=== PATIENT | female | born 1950 | race Caucasian/White ===

== ENCOUNTER → 2016-09-02 | Outpatient (CLI) | payer BC ==
[~2016-09-02] MED LIST: APIX1TAB3 PO; ATV/1 PO; CLX20; FLUO40CA8 PO; GDN40; LORA-741 PO; NITR-5 PO; PXL20; [UNRECOGNIZED DRUG - OTHER]
[2016-09-02 15:39] LABS: BASO % 0.2 %; BASO ABS # 0.02 K/uL (0-0.2); COMPLETE YES; EOS % 2.7 %; HEMATOCRIT 38.9 % (37-47); IG% 0.3 %; LYMPH % 19.9 %; LYMPH ABS # 2.36 K/uL (1.2-3.4); MEAN CELL VOLUME 89.8 fL (80-100); MEAN CORPUSCULAR HGB CONC 33.4 g/dl (32-36); MEAN PLATELET VOLUME 10.2 fL (7.4-10.4); MONO % 6.8 %; NEUT % 70.1 %; PLATELET COUNT 292 K/uL (130-400); RED BLOOD COUNT 4.33 M/uL (4.2-5.4); WHITE BLOOD COUNT 11.86 K/uL (4.8-10.8)
[2016-09-02 16:02] LABS: ALT/SGPT 26 U/L (12-78); BLOOD UREA NITROGEN 17 mg/dl (7-18); BUN/CREATININE RATIO 18.5 (10-20); CALCIUM 9.4 mg/dl (8.5-10.1); CARBON DIOXIDE 29 mmol/L (21-32); CHLORIDE 101 mmol/L (98-107); CHOLESTEROL 186 mg/dl (0-200); CREATININE 0.92 mg/dl (0.60-1.20); GLUCOSE 90 mg/dl (70-99); MAGNESIUM 2.1 mg/dl (1.8-2.4); SODIUM 137 mmol/L (136-145); TRIGLYCERIDES 264 mg/dl (0-150); VERY LOW DENSITY LIPOPROT CALC 53 mg/dl
[2016-09-02 16:11] LABS: ALKALINE PHOSPHATASE 70 U/L (45-117); AST/SGOT 13 U/L (15-37); CHOLESTEROL/HDL RATIO 3.8; HDL CHOLESTEROL 49 mg/dl; LDL CHOLESTEROL CALCULATED 84 mg/dl
== END | disposition home or self-care (01) ==
LOC: C.LAB1850 14:06
PROVIDERS: ATTEND Internal Medicine
DX: I48.91 Unspecified atrial fibrillation (principal); E55.9 Vitamin D deficiency, unspecified

== ENCOUNTER → 2016-09-10 | Outpatient (CLI) | payer BC ==
--- NOTE | 2016-09-11 06:14 | PAP/PSG TECHNICIAN REPORT ---
[facility] Poultry Cutter Polysomnogram Report Study name: None Report date: 09/11/2016 Study date: 09/10/2016 Referring Physician: RV. GONSALVES MD Name: JAIME GAXIOLA Interpreting Physician: Preston Aguilar M.D. Date of : 1950 Poultry Cutter: CHARIS Cisneros. Sex: Female Age: 66 StudyType: PSG PAP Weight: 193 lbs Height: 66 years, Height 5' 3" Neck Circum:15inches BMI: 34.18 Medications: Eliquis 5mg, Fluoxetine 40mg, Lorazepam 0.5mg, Patient History Study started on room air with 4cwp in room #8. 66 yr old female here tonight for a new titration study. She had a diagnostic study done in [place] that had an AHI of 16.7. Her ESS=6/24. Neck circ=15inches. Parameters Monitored NPSG: E1-M2, E2-M1, Fp1-M2, Fp2-M1, F3-M2, F4-M2, F4-M1, C3-M2, C4-M2, C4-M1, O1-M2, O2-M2, O2-M1, T3-M2, T4-M1, P3-M2, P4-M1, CHIN1, CHIN2, HR, EKG, Legs, PFLOW, SNOR, FLOW, CFLOW, Tidal Volume, THOR, ABDO, SpO2, PLTH, CPRESS, ETCO2 Wave, ETCO2, pH Sleep Architecture Sleep Stages Time at Lights Off 9:23:43 PM STAGES Time (min.) TST (%) Time at Lights On 5:30:13 AM Wake 202.5 -- Total Recording Time (TRT) 486.50 min. N1 23.5 8 Total Sleep Period (TSP) 375.0 min. N2 183.0 64 Total Sleep Time (TST) 284.0min. N3 34.5 12 Awake Time 202.5 min. REM 43.0 15 Wake after Sleep Onset 102.5 min. Sleep Efficiency (SE) 58 % Sleep Onset Latency (MARC) 100.0 min. Number of Stage 1 Shifts None Awakenings 14 Stage Changes 85 Number of REM periods 8 REM 43.0 15 REM Latency 157.5 min. NREM 241.0 85 Body Position Analysis Supine Right Left Side Prone Vertical Total Sleep Time (min.) 217.7 82.5 85.5 168.05 0.0 0.0 Total Sleep Time (%) 41% 29% 30% 59 0% N/A% Total Sleep Time REM (min.) 28.5 14.5 0.0 None 0.0 0.0 Total Sleep Time NREM (min.) 87.5 68.0 85.5 None 0.0 0.0 Intermittent Wake (min.) 101.7 30.2 70.5 None 0.0 0.0 Total Sleep Period (%) 43% None None None None None Arousals Myoclonus (PLM) * Events Count Index Events Count Index Spontaneous 15 3 Events Awake (PLMW) 338 100.1 Respiratory 8 1.9 Events Asleep w/ Arousal (PLMA) 23 4.9 PLM 23 5 Events Asleep w/o Arousal (PLMS) 229 48.4 Snoring 2 0 Total Asleep 252 53.2 Total 48 10 Total 590 73 Respiratory Analysis * CA OA MA CH H RERA Total Count 0 1 0 0 24 0 25 Index 0.0 0.2 0.0 0 5.1 0 5.3 Mean Duration 0.0 37.5 0.0 0.00 28.4 0.0 28.8 Longest Duration 0.0 37.5 0.0 0.00 0.0 0.0 49.4 Respiratory Event Summary Total Supine ~Supine Right Left Prone REM NREM Apneas Count 1 1 0 0 0 N/A 1 0 Index 0.2 1 0 0.0 0.0 N/A 1 0 Hypopneas (4% Desat) Count 24 24 0 0 0 N/A 22 2 Index 5.1 12.4 0 0.0 0.0 N/A 30.7 0.5 Apneas & All Hypopneas Count 25 25 0 0 0 N/A 23 2 Index 5.3 13 0 0 0 N/A 32.1 0.5 Respiratory Events (Manager Division+All Hyp+RERA) Count 25 25 0 0 0 N/A 23 2 Index 5.3 13 0 0.0 0.0 N/A 32.1 0.5 Respiratory Related Arousal Count 8 25 0 0 0 N/A 8 1 Index 1.9 5 0 0 0 N/A 11 0 Snoring Analysis Supine Right Left Prone REM NREM Total Snore duration 1.8 min Snores count 59 2 3 N/A 44 20 64 Snore mean duration 1.7 Sec Snores index 31 1 2 N/A 61.4 5.0 13.5 TST with snoring (%) 0.6% Desaturation Event Summary: Minimum %SpO2 Event Count Mean/Min/Max Duration(sec.) Desaturation Index % Time In Bed > 90 64 30.0 / 7.8 / 59.3 11.0 74.6 86 - 90 12 24.8 / 7.5 / 54.5 6.2 24.8 81 - 85 0 N/A 0.0 0.6 76 - 80 0 N/A 0.0 0.0 71 - 75 0 N/A 0.0 0.0 66 - 70 0 N/A 0.0 0.0 61 - 65 0 N/A 0.0 0.0 56 - 60 0 N/A 0.0 0.0 51 - 55 0 N/A 0.0 0.0 < 50 0 N/A 0.0 0.0 Total REM NREM Awake <50% 0.0 min. 0.0 min. 0.0 min. 0.0 min. 51 - 60% 0.0 min. 0.0 min. 0.0 min. 0.0 min. 61 - 70% 0.0 min. 0.0 min. 0.0 min. 0.0 min. 71 - 80% 0.0 min. 0.0 min. 0.0 min. 0.0 min. 81 - 90% 118.6 min. 21.1 min. 71.8 min. 25.7 min. 91 - 100% 349.0 min. 21.9 min. 169.2 min. 157.9 min. Average 92 90 91 93 Minimum SpO2 81 83 81 82 Desaturation Event Index 8.3 37.7 1.5 10.7 # Desat. Events below 89% 36 24 3 9 Time(%) with Saturation below 89% 4.1 2.0 1.0 1.1 Time(min.) with Saturation below 89% 19.3 9.2 4.9 5.3 Time (mins) REM (mins) NREM (mins) % of TST SpO2 Below 90% 31 26 N5 11.8 SpO2 Below 88% 14 0 0 3 Heart Rate Analysis Min (bpm) Max (bpm) Average (bpm) Awake 58 132 74 NREM 58 89 72 REM 57 86 69 Overall 57 89 72 Supplemental O2 Values Minimum O2 level: None Value Start Time End Time Poultry Cutter Comments Mrs. Gaxiola slept in the right, left and supine positions. No cardiac arrhythmia noted. PLM's noted. No bruxism noted. CPAP was initiated at +4 CMH2O and up-titrated to an optimal level of +8 CMH2O, which nearly eliminated all respiratory events and snoring. A small Quattro Air full face mask by [employer] was used during titration She used the restroom two times during the night. She stated that she slept a little worse than usual. She did have a panic attack after her first REM period. The final report will be interpreted and signed by a sleep physician. The completed physician report will then be placed in the patient medical record. Therapy Event: Therapy (cm H20) 4 6 7 8 Total Time at Pressure (min.) 261.1 11.4 11.2 202.8 TST at Pressure (min.) 150.1 11.4 11.2 111.3 # Periods 1 1 1 1 Sleep Onset (min.) 100.0 0.0 0.0 0.0 REM Onset (min.) 257.5 0.0 0.0 0.0 Sleep Efficiency % 57 100 100 54 Wakefulness (%) 42.5 0.0 0.0 45.1 Wakefulness (min.) 111.0 0.0 0.0 91.5 NREM 1 (%) 5.7 13.1 13.4 2.7 NREM 1 (min.) 15.0 1.5 1.5 5.5 NREM 2 (%) 37.2 0.0 0.0 42.4 NREM 2 (min.) 97.0 0.0 0.0 86.0 NREM 3 (%) 13.2 0.0 0.0 0.0 NREM 3 (min.) 34.5 0.0 0.0 0.0 REM (%) 1.4 86.9 86.6 9.8 REM (min.) 3.6 9.9 9.7 19.8 # Arousals 27 4 6 11 Arousal Index 10.8 21.0 32.1 5.9 # Snore 14 15 20 15 Snore Index 5.6 78.9 106.8 8.1 AHI 1.6 47.3 42.7 2.2 AHI Supine 3.9 47.3 42.7 7.7 AHI Non-Supine 0.0 N/A N/A 0.0 NREM AHI 0.4 40.0 0.0 0.0 REM AHI 50.2 48.4 49.3 12.1 RDI 1.6 47.3 42.7 2.2 # Obstructive 0 1 0 0 # Central Ap 0 0 0 0 # Mixed 0 0 0 0 # Hypopneas 4 8 8 4 RERAS 0 0 0 0 Total Respiratory Events 4 9 8 4 Time Below SpO2 89.00% (min.) 3.2 4.5 3.3 3.0 Mean NREM SpO2 (%) 91 88 89 91 Mean REM SpO2 (%) 90 89 90 91 Mean Sleep SpO2 (%) 91 89 90 91 Min NREM SpO2 (%) 87 81 85 88 Min REM SpO2 (%) 84 84 83 84 Position Supine (min.) 62.2 11.4 11.2 31.1 Position Non-supine (min.) 87.9 0.0 0.0 80.1 LM Index Sleep 90.3 57.9 42.7 3.8 LM Index NREM 91.7 0.0 0.0 0.7 LM Index REM 33.5 66.6 49.3 18.2 Mean Heart Rate (bpm) 74 70 70 69 Min Heart Rate (bpm) 60 60 59 57
--- NOTE | 2016-09-15 17:02 | Sleep Study ---
Sleep Study Report Date of Service: September 10, 2016 Sleep Study Report Clinical data: The patient is a 66-year-old female with a BMI of 34.2 referred by her PCP for a CPAP titration study. She had a diagnostic PSG done in [place] which showed moderate sleep apnea with an AHI of 16.7. Her [place] sleepiness score is 6/24. Sleep architecture: Total sleep time was 284 minutes divided between 241 minutes of non-REM sleep and 43 minutes of REM sleep. Sleep onset latency was markedly delayed at 100 minutes. REM latency was 157.5 minutes. Sleep efficiency was reduced at 58 percent. Wake after sleep onset was elevated at 102.5 minutes. Sleep consisted of stage N1 8 percent, stage N2 64 percent, stage N3 12 percent, and REM 15 percent. Arousal data: 48 arousals were recorded for index of 10 per hour. PLM data: Significantly elevated limb movements during sleep were noted. There were 252 limb movements during sleep noted for an index of 53.2 per hour with an arousal index of 4.9 per hour. Respiratory data: The AHI was 5.3. There was 1 obstructive apneic episodes 37.5 seconds in duration. There were 24 hypopneic episodes. The mean duration of hypopnea was 28.4 seconds. Oximetry data: Nocturnal hypoxemia was seen. Oxygen nj was 81 percent during non-REM sleep. Mean saturation was 92 percent. Time below 88 percent was 14 minutes. EKG: Heart rates ranged from 57 to 89 beats per minute. No arrhythmias were noted. Treatment summary: The patient slept in the right, left, and supine positions. She used a small Quattro air fullface mask by [employer]. She was titrated up to her optimal pressure setting of 8 centimeters water pressure. At that final pressure setting, the patient slept for 111.3 minutes with an AHI of 2.2. She did have a panic attack after her 1st REM episode. Impression: Moderate sleep apnea corrected with CPAP 8 centimeters water pressure utilizing a small Quattro air fullface mask by [employer] Recommendations: Patient should be started on the above-noted treatment regimen and seen back in follow-up within 90 days to document efficacy and compliance. Copies To 1: RV. Laureano MD
== END | disposition home or self-care (01) ==
LOC: C.NEUR 20:00
PROVIDERS: ATTEND Internal Medicine
DX: G47.33 Obstructive sleep apnea (adult) (pediatric) (principal); I48.91 Unspecified atrial fibrillation; F32.9 Major depressive disorder, single episode, unspecified; E55.9 Vitamin D deficiency, unspecified

== ENCOUNTER → 2016-09-15 | Outpatient (CLI) | payer BC ==
[2016-09-15 12:22] LABS: BASO % 0.4 %; BASO ABS # 0.04 K/uL (0-0.2); COMPLETE YES; EOS % 2.9 %; HEMATOCRIT 38.1 % (37-47); IG% 0.2 %; LYMPH % 21.7 %; LYMPH ABS # 1.99 K/uL (1.2-3.4); MEAN CELL VOLUME 92.3 fL (80-100); MEAN CORPUSCULAR HEMOGLOBIN 31.2 pg (25-34); MEAN CORPUSCULAR HGB CONC 33.9 g/dl (32-36); MEAN PLATELET VOLUME 10.9 fL (7.4-10.4); MONO % 8.1 %; NEUT % 66.7 %; PLATELET COUNT 261 K/uL (130-400); RED BLOOD COUNT 4.13 M/uL (4.2-5.4); WHITE BLOOD COUNT 9.17 K/uL (4.8-10.8)
[2016-09-15 12:58] LABS: TOTAL IRON BINDING CAPACITY 304 mcg/dl (250-450)
[2016-09-15 14:33] LABS: LYME DISEASE AB IGG NEG (NEG)
[2016-09-15 14:36] LABS: LYME DISEASE AB IGM NEG (NEG)
[2016-09-17 16:51] LABS: EPSTEIN BARR VIR CAPSID IGG >750.00 U/ML
== END | disposition home or self-care (01) ==
LOC: C.LAB1850 10:21
PROVIDERS: ATTEND Internal Medicine
DX: Z11.59 Encounter for screening for other viral diseases (principal); R53.83 Other fatigue

== ENCOUNTER 2016-09-27 07:35 | Emergency (ER) | payer BC ==
[~2016-09-27] VITALS: Ht 162.6 cm; Wt 88.5 kg
[~2016-09-27 07:35] MED LIST changes: -APIX1TAB3 PO; -ATV/1 PO; -FLUO40CA8 PO; -LORA-741 PO; -NITR-5 PO
[2016-09-27 07:39] VITALS: TEMP 37.1; Ht 162.6 cm; Wt 88.5 kg
[2016-09-27 08:13] VITALS: O2SAT 96
--- NOTE | 2016-09-27 08:13 | EMERGENCY ROOM VISIT NOTE ---
History Report prepared by Petty: Kailey Alex Under the Supervision of: Dr. Gutierrez Woodard M.D. First contact with patient: 07:51 Chief Complaint: OTHER COMPLAINT Stated Complaint: PT THINKS SHE HAD A STROKE MONDAY 09/25 History of Present Illness The patient is a 66 year old female who presents to the Emergency Room for further evaluation of resolved stroke-like symptoms that occurred 2 days ago. The patient states that she was at the pharmacy picking up medications when she coughed and after opening her eyes the room looked like it was "filled with smoke." She has a history of TIAs and states that Dr. Burger - Internal Medicine told her that if she ever had visual changes to get evaluated because it could be a sign of a CVA. The patient states that she was also experiencing dizziness. She asked her to bring her into the ED or to the doctor, but she states that he refused to take her and told her to go home and lay down for a while. The patient states that she woke up the next morning and wanted to go into a walk-in clinic but her would not take her. She states that she woke up this morning and was going to drive herself into the ED but her said he would drive her. She is also experiencing generalized weakness, but denies fevers, chills, and abdominal pain. She states that she started Macrobid 3 days ago for a UTI with hematuria. She states that she is experiencing some left-sided flank pain which she thinks is associated with the UTI. The patient adds that she is concerned about developing chest pain so she would like to have nitroglycerin paste applied just in case she gets chest pain because she is not confident that her would help her if she got pain. The patient states that she has been compliant with her medications. The patient's adds that the patient started medication for hypertension somewhat recently and it causes her to get lightheaded with changes in position. Source of History: patient, spouse/significant other () Onset: 2 days ago Position: head Timing: resolved Modifying Factors (Worsening): other (stroke-like symptoms) Associated Symptoms: + weakness (generalized), No fevers, No chills, No abdominal pain Note: visual changes, dizziness, left flank pain Review of Systems All systems have been listed, reviewed, and are negative other than those previously mentioned. Please see Additional Medical History Sheet. Past Medical & Surgical Medical Problems: (1) Heart disease (2) Hypertension Family History Heart disease Lung disease Social History Smoking Status: Never Smoker Smokeless Tobacco Use: No Alcohol Use: none Drug Use: none Marital Status: single Housing Status: lives with significant other Occupation Status: unemployed Current/Historical Medications Scheduled Apixaban (Eliquis), 5 MG PO BID Fluoxetine Hcl (Prozac), 40 MG PO QAM Lorazepam (Ativan), 0.5 MG PO QAM Lorazepam (Ativan), 1 MG PO HS Nitrofurantoin Monohyd Macrocr (Macrobid), 100 MG PO BID Allergies Coded Allergies: Chlorpromazine (Verified Allergy, Mild, TACHYCARDIA, 09/27/16) Penicillins (Verified Allergy, Mild, 09/27/16) Omeprazole (Verified Adverse Reaction, Unknown, SEV. STOMACH PAIN, 09/27/16 ) Physical Exam Vital Signs Date Time Temp Pulse Resp B/P (MAP) Pulse Ox O2 Delivery O2 Flow Rate FiO2 09/27/16 10:15 76 18 134/87 95 Room Air 09/27/16 08:16 74 09/27/16 08:15 98 Room Air 09/27/16 08:13 96 Room Air 09/27/16 07:39 37.1 87 18 154/87 94 Room Air Physical Exam GENERAL: Patient awake, alert, oriented x 3. Patient follows commands. Patient does not appear toxic. Patient is adequately hydrated and well- nourished. SKIN: No erythema, pallor, cyanosis or rash HEENT: Normal head, pupils equal, reactive to light and accommodation. Ears normal. Oral cavity and posterior pharynx appear normal. Neck: Without adenopathy, no neck vein distention. LUNGS: Clear to auscultation. No wheezes, no rales, no rhonchi. HEART: No murmurs. No gallops. No rubs ABDOMEN: No masses, no rebound, no hepatomegaly or splenomegaly. EXTREMITIES: No signs of trauma. No pedal or pretibial edema. No calf or thigh tenderness. NEUROLOGIC: Cranial nerves II-XII within normal limits. No gross motor sensory function deficits. PSYCH: Awake, alert, oriented appropriately, does not appear to be hallucinating , does not appear to be suicidal. Medical Decision & Procedures ER Provider Diagnostic Interpretation: Radiology results as stated below per my review and radiologist interpretation: CHEST 2 VIEWS ROUTINE FINDINGS: The cardiac and mediastinal contours are normal. There is no evidence of focal pulmonary consolidation. There is no evidence of failure. No pleural effusions are visualized.[ There is minimal left basilar atelectasis/scarring. IMPRESSION: No active disease in the chest. Electronically signed by: Antoine Leon M.D. 09/27/2016 8:55 AM Dictated Date/Time: 09/27/2016 8:54 AM Laboratory Results 09/27/16 08:20 Red Blood Count 4.01, Mean Corpuscular Volume 91.5, Mean Corpuscular Hemoglobin 31.7, Mean Corpuscular Hemoglobin Concent 34.6, Mean Platelet Volume 10.3, Neutrophils (%) (Auto) 70.4, Lymphocytes (%) (Auto) 17.9, Monocytes (%) (Auto) 7.0, Eosinophils (%) (Auto) 4.1, Basophils (%) (Auto) 0.4, Neutrophils # (Auto) 5.69, Lymphocytes # (Auto) 1.45, Monocytes # (Auto) 0.57, Eosinophils # (Auto) 0.33, Basophils # (Auto) 0.03 09/27/16 08:20 Test 09/27/16 08:20 09/27/16 08:25 White Blood Count 8.09 K/uL (4.8-10.8) Red Blood Count 4.01 M/uL (4.2-5.4) Hemoglobin 12.7 g/dL (12.0-16.0) Hematocrit 36.7 % (37-47) Mean Corpuscular Volume 91.5 fL (80-100) Mean Corpuscular Hemoglobin 31.7 pg (25-34) Mean Corpuscular Hemoglobin Concent 34.6 g/dl (32-36) Platelet Count 215 K/uL (130-400) Mean Platelet Volume 10.3 fL (7.4-10.4) Neutrophils (%) (Auto) 70.4 % Lymphocytes (%) (Auto) 17.9 % Monocytes (%) (Auto) 7.0 % Eosinophils (%) (Auto) 4.1 % Basophils (%) (Auto) 0.4 % Neutrophils # (Auto) 5.69 K/uL (1.4-6.5) Lymphocytes # (Auto) 1.45 K/uL (1.2-3.4) Monocytes # (Auto) 0.57 K/uL (0.11-0.59) Eosinophils # (Auto) 0.33 K/uL (0-0.5) Basophils # (Auto) 0.03 K/uL (0-0.2) RDW Standard Deviation 44.8 fL (36.4-46.3) RDW Coefficient of Variation 13.4 % (11.5-14.5) Immature Granulocyte % (Auto) 0.2 % Immature Granulocyte # (Auto) 0.02 K/uL (0.00-0.02) Anion Gap 7.0 mmol/L (3-11) Est Creatinine Clear Calc Drug Dose 60.4 ml/min Estimated GFR () 68.5 Estimated GFR (Non- 59.1 BUN/Creatinine Ratio 20.7 (10-20) Calcium Level 9.2 mg/dl (8.5-10.1) Total Bilirubin 0.4 mg/dl (0.2-1) Aspartate Amino Transf (AST/SGOT) 11 U/L (15-37) Alanine Aminotransferase (ALT/SGPT) 20 U/L (12-78) Alkaline Phosphatase 65 U/L (45-117) Troponin I < 0.015 ng/ml (0-0.045) Total Protein 6.6 gm/dl (6.4-8.2) Albumin 3.4 gm/dl (3.4-5.0) Globulin 3.2 gm/dl (2.5-4.0) Albumin/Globulin Ratio 1.1 (0.9-2) Thyroid Stimulating Hormone (TSH) 2.490 uIu/ml (0.300-4.500) Urine Color YELLOW Urine Appearance CLEAR (CLEAR) Urine pH 7.0 (4.5-7.5) Urine Specific [place] 1.025 (1.000-1.030) Urine Protein NEG (NEG) Urine Glucose (UA) NEG (NEG) Urine Ketones NEG (NEG) Urine Occult Blood 2+ (NEG) Urine Nitrite NEG (NEG) Urine Bilirubin NEG (NEG) Urine Urobilinogen NEG (NEG) Urine Leukocyte Esterase MODERATE (NEG) Urine WBC (Auto) >30 /hpf (0-5) Urine RBC (Auto) 10-30 /hpf (0-4) Urine Hyaline Casts (Auto) 1-5 /lpf (0-5) Urine Epithelial Cells (Auto) >30 /lpf (0-5) Urine Bacteria (Auto) NEG (NEG) Laboratory results as stated above per my review. Medications Administered Medications (Trade) Dose Ordered Sig/Eleazar Route Start Time Stop Time Status Last Admin Dose Admin Acetaminophen (Tylenol Tab) 1,000 mg NOW STAT PO 09/27/16 10:02 09/27/16 10:03 DC 09/27/16 10:19 1,000 MG ECG Indication: weakness Rate (beats per minute): 73 Rhythm: normal sinus Findings: nonspecific-ST abn, no ectopy ED Course 0751: Past medical records reviewed. The patient was evaluated in room A12. A complete history and physical examination was performed. 0959: Upon reevaluation, the patient appeared to have improvement of her symptoms. She is experiencing a mild headache and requested something for the pain. I discussed today's findings with her. She verbalized agreement of the treatment plan. She will receive some medication for her headache then she will be discharged home. 1002: Ordered Tylenol Tab 1000 mg PO Medical Decision Nurses notes reviewed. Medical history sheet reviewed. Differential diagnosis includes but is not limited to: paranoia, metabolic disorder, dehydration, thyroid dysfunction. The patient had multiple labs, chest x-ray and EKG performed. She has no evidence of an acute CVA, pneumonia, or other cardiopulmonary event. The patient continues to have white cells in the urine but no bacteria. She is currently on Macrobid. We will await culture results prior to changing antibiotics. I also explained that she does not need nitroglycerin or other medications at this time. I believe the patient is safe to return home. Patient did have a mild headache and she was given Tylenol. Medication Reconcilliation Current Medication List: was personally reviewed by me Blood Pressure Screening Patient's blood pressure: Elevated blood pressure Blood pressure disposition: Referred to PCP Impression Primary Impression: Urinary tract infection Additional Impression: Anxiety Scribe Attestation The scribe's documentation has been prepared under my direction and personally reviewed by me in its entirety. I confirm that the note above accurately reflects all work, treatment, procedures, and medical decision making performed by me. Departure Information Dispostion Home / Self-Care Referrals RV. Laureano MD (PCP) Forms HOME CARE DOCUMENTATION FORM, IMPORTANT VISIT INFORMATION, WORK / SCHOOL INSTRUCTIONS Patient Instructions My [facility] ([employer]) Additional Instructions We will call you if you need a medication change for your urinary tract infection. Follow-up with your family physician within the next 2 weeks to make sure you' re feeling better and to check your blood pressure. Continue all of your current medications as prescribed. Problem Qualifiers Primary Impression: Urinary tract infection Urinary tract infection type: site unspecified Hematuria presence: with hematuria Qualified Codes: N39.0 - Urinary tract infection, site not specified ; R31.9 - Hematuria, unspecified
[2016-09-27 08:30] LABS: BASO % 0.4 %; BASO ABS # 0.03 K/uL (0-0.2); COMPLETE YES; EOS % 4.1 %; HEMATOCRIT 36.7 % (37-47); IG% 0.2 %; LYMPH % 17.9 %; LYMPH ABS # 1.45 K/uL (1.2-3.4); MEAN CELL VOLUME 91.5 fL (80-100); MEAN CORPUSCULAR HEMOGLOBIN 31.7 pg (25-34); MEAN CORPUSCULAR HGB CONC 34.6 g/dl (32-36); MEAN PLATELET VOLUME 10.3 fL (7.4-10.4); NEUT % 70.4 %; PLATELET COUNT 215 K/uL (130-400); RED BLOOD COUNT 4.01 M/uL (4.2-5.4); WHITE BLOOD COUNT 8.09 K/uL (4.8-10.8)
[2016-09-27 08:37] LABS: URINE APPEARANCE CLEAR (CLEAR); URINE BILIRUBIN NEG (NEG); URINE COLOR YELLOW; URINE EPITHELIAL CELL AUTO >30 /lpf (0-5); URINE NITRITE NEG (NEG); URINE SPECIFIC GRAVITY 1.025 (1.000-1.030); UROBILINOGEN NEG (NEG); ZZUR CULT IF INDIC CLEAN CATCH YES
[2016-09-27] MEDS ORDERED: APIX1TAB3 PO (08:37)
[2016-09-27] MEDS ORDERED: LORA-741 PO (08:37)
[2016-09-27] MEDS ORDERED: ATV/1 PO (08:37)
[2016-09-27] MEDS ORDERED: FLUO40CA8 PO (08:37)
[2016-09-27] MEDS ORDERED: NITR-5 PO (08:37)
[2016-09-27 08:39] LABS: MANUAL MICROSCOPIC REQUIRED? NO; REVIEW REQ? NO
[2016-09-27 08:48] LABS: ALT/SGPT 20 U/L (12-78); BLOOD UREA NITROGEN 21 mg/dl (7-18); BUN/CREATININE RATIO 20.7 (10-20); CALCIUM 9.2 mg/dl (8.5-10.1); CARBON DIOXIDE 28 mmol/L (21-32); CHLORIDE 105 mmol/L (98-107); GLUCOSE 94 mg/dl (70-99); POTASSIUM 3.9 mmol/L (3.5-5.1); SODIUM 140 mmol/L (136-145)
--- NOTE | 2016-09-27 08:56 | DIAGNOSTIC IMAGING REPORT ---
CHEST 2 VIEWS ROUTINE CLINICAL HISTORY: cough COMPARISON STUDY: No previous studies for comparison. FINDINGS: The cardiac and mediastinal contours are normal. There is no evidence of focal pulmonary consolidation. There is no evidence of failure. No pleural effusions are visualized.[ There is minimal left basilar atelectasis/scarring. IMPRESSION: No active disease in the chest. Electronically signed by: Antoine Leon M.D. 09/27/2016 8:55 AM Dictated Date/Time: 09/27/2016 8:54 AM
[2016-09-27 08:59] LABS: ALB/GLOB RATIO 1.1 (0.9-2); ALKALINE PHOSPHATASE 65 U/L (45-117); AST/SGOT 11 U/L (15-37)
[2016-09-27] MEDS ORDERED: ACETAMINOPHEN 325 MG TAB PO STA (10:02)
[2016-09-27 10:15] VITALS: BP 134/87; PULSE 76; O2SAT 95
[2016-09-27] MEDS ORDERED: ACETAMINOPHEN 500 MG TAB PO ONE (10:15)
== END 2016-09-27 10:40 | disposition home or self-care (01) ==
LOC: C.EDB 07:37 → C.EDA 10:40
DX: N39.0 Urinary tract infection, site not specified (principal); F41.9 Anxiety disorder, unspecified; R51 Headache; Z86.73 Personal history of transient ischemic attack (TIA), and cerebral infarction without residual deficits; I10 Essential (primary) hypertension; Z79.01 Long term (current) use of anticoagulants; Z79.899 Other long term (current) drug therapy

== ENCOUNTER → 2016-10-02 | Outpatient (CLI) | payer BC ==
[~2016-10-02] MED LIST changes: +APIX1TAB3 PO; +ATV/1 PO; -CLX20; +FLUO40CA8 PO; -GDN40; +LORA-741 PO; +NITR-5 PO; -PXL20; -[UNRECOGNIZED DRUG - OTHER]
[2016-10-02 13:41] LABS: URINE APPEARANCE CLEAR (CLEAR); URINE BILIRUBIN NEG (NEG); URINE COLOR YELLOW; URINE EPITHELIAL CELL AUTO 0-5 /lpf (0-5); URINE NITRITE NEG (NEG); URINE PH 7.5 (4.5-7.5); URINE SPECIFIC GRAVITY 1.007 (1.000-1.030); UROBILINOGEN NEG (NEG); ZZUR CULT IF INDIC CLEAN CATCH NO
[2016-10-02 13:44] LABS: MANUAL MICROSCOPIC REQUIRED? NO; REVIEW REQ? NO
== END ==
LOC: C.LAB1850 12:28
PROVIDERS: ATTEND Physician Assistant
DX: R39.9 Unspecified symptoms and signs involving the genitourinary system (principal)

== ENCOUNTER → 2016-10-27 | Outpatient (CLI) | payer BC ==
[2016-10-27 18:24] LABS: URINE APPEARANCE CLEAR (CLEAR); URINE BILIRUBIN NEG (NEG); URINE COLOR YELLOW; URINE EPITHELIAL CELL AUTO 0-5 /lpf (0-5); URINE NITRITE NEG (NEG); URINE SPECIFIC GRAVITY 1.013 (1.000-1.030); UROBILINOGEN NEG (NEG); ZZUR CULT IF INDIC CLEAN CATCH NO
[2016-10-27 18:39] LABS: MANUAL MICROSCOPIC REQUIRED? NO; REVIEW REQ? NO
== END | disposition home or self-care (01) ==
LOC: C.LABSPEC 17:10
PROVIDERS: ATTEND Physician Assistant
DX: R39.9 Unspecified symptoms and signs involving the genitourinary system (principal)